=== PATIENT | female | born 1975 | race Caucasian/White ===

== ENCOUNTER 2020-01-07 17:07 | Inpatient (IN) ==
[2020-01-07] MEDS ORDERED: 0.9 % Sodium Chloride 1,000 ML IVC ONE (17:35)
[2020-01-07] MEDS ORDERED: Ipratropium/Albuterol Neb 3 ML IH ONE (17:35)
[2020-01-07] MEDS ORDERED: Insulin Human Regular 10 UNIT in 0.9 % Sodium Chloride 10 ML IV ONE (17:37)
[2020-01-07] MEDS ORDERED: MethylPREDNISolone 40 MG/ML VIAL IVP ONE (17:47)
[2020-01-07 17:50] LABS: Basophils % 0.2 %; Eosinophils % 0.2 %; Hematocrit 40.6 % (35.3-44.9); Hemoglobin 12.8 g/dL (11.5-15.4); Immature Granulocytes % 0.9 % (0-4); Lymphocytes % 10.1 %; Mean Corpuscular HGB Conc 31.5 g/dL (31.6-35.5); Mean Corpuscular Hemoglobin 24.7 pg (28.0-33.3); Mean Corpuscular Volume 78.4 fL (83.0-100.0); Mean Platelet Volume 10.2 fL (9.4-12.4); Monocytes # 0.1 K/mcL (0.0-1.3); Monocytes % 0.8 %; Neutrophils # 8.3 K/mcL (1.6-8.9); Platelet Count 299 K/mcL (140-400); Red Blood Count 5.18 M/mcL (3.82-4.97); Red Cell Distribution Width 15.7 % (11.5-14.5); Segmented Neutrophils % 87.8 %; White Blood Count 9.5 K/mcL (4.3-11.1)
[2020-01-07 18:18] LABS: Troponin I < 0.03 ng/mL (< 0.04)
[2020-01-07 18:19] LABS: Alanine Aminotransferase 11 Units/L (7-52); Albumin 4.1 g/dL (3.5-5.7); Albumin/Globulin Ratio 1.1 (1.1-2.2); Alkaline Phosphatase 105 Units/L (34-104); Aspartate Amino Transferase 16 Units/L (13-39); BUN/Creatinine Ratio 22 (6-26); Bilirubin,Direct 0.1 mg/dL (0.0-0.2); Bilirubin,Indirect 0.2 mg/dL (0.0-1.0); Bilirubin,Total 0.3 mg/dL (0.3-1.0); Blood Urea Nitrogen 19 mg/dL (6-20); Calcium 9.6 mg/dL (8.6-10.3); Carbon Dioxide 22 mEq/L (23-29); Chloride 92 mEq/L (98-107); Globulin 3.9 g/dL (2.4-3.5); Glucose 481 mg/dL (70-105); Osmolality,Calculated 292 (280-300); Potassium 3.9 mEq/L (3.5-5.1); Sodium 129 mEq/L (136-145); eGFR For African Americans > 60 (> 60); eGFR For Non-African Americans > 60 (> 60)
[2020-01-07 18:29] LABS: VBG HCO3 24 mEq/L (21-27); VBG PCO2 43 mmHg (41-51); VBG PH 7.35 pH Units (7.32-7.42); VBG PO2 71 mmHg (25-50)
[2020-01-07] MEDS ORDERED: Ipratropium/Albuterol Neb 3 ML IH PRN ×2 (19:40→20:40)
[2020-01-07] MEDS ORDERED: MethylPREDNISolone 40 MG/ML VIAL IVP SCH (19:45)
[2020-01-07] MEDS ORDERED: *HR* Dextrose 50 % in Water (Syg) 50 ML SYRINGE IVP PRN ×2 (19:53→20:40)
[2020-01-07] MEDS ORDERED: Dextrose Gel 15 GM/37.5 ML TUBE PO PRN ×5 (19:53→20:40)
[2020-01-07] MEDS ORDERED: D5% in Water 1,000 ML IVC PRN ×2 (19:53→20:40)
[2020-01-07] MEDS ORDERED: cefTRIAXone 1,000 MG in Water for inj. (sterile) 10 ML IVP SCH (20:00)
[2020-01-07] MEDS ORDERED: Insulin LISPRO 300 UNITS/3 ML VIAL SQ SCH (20:00)
[2020-01-07] MEDS ORDERED: Ondansetron 4 MG/2 ML VIAL IVP PRN (20:40)
[2020-01-07] MEDS ORDERED: *HR* HYDROcodone/Acet 5/325 mg TABLET PO PRN (20:40)
[2020-01-07] MEDS ORDERED: Naloxone 0.4 MG/ML INJ IVP PRN (20:40)
[2020-01-07] MEDS ORDERED: Insulin DETEMIR 100 UNIT/ML per UNIT SQ ONE ×2 (21:00)
[2020-01-07] MEDS ORDERED: ARIPiprazole 2 MG TABLET PO SCH (21:00)
[2020-01-07] MEDS: Budesonide/Formoterol 160/4.5 1 PUFF INH IH SCH (21:37)
[2020-01-07] MEDS ORDERED: Ipratropium/Albuterol Neb 3 ML IH SCH (22:00)
[2020-01-07] MEDS: Gabapentin 300 MG CAPSULE PO SCH (23:28)
[2020-01-07] MEDS: FLUoxetine 20 MG CAPSULE PO SCH (23:28)
[2020-01-07] MEDS: lamoTRIgine 100 MG TABLET PO SCH (23:32)
[2020-01-07] MEDS: ALPRAZolam 1 MG TABLET PO SCH (23:33)
[2020-01-07] MEDS: lamoTRIgine 25 MG TABLET PO SCH (23:33)
[2020-01-08] MEDS: Ipratropium/Albuterol Neb 3 ML IH SCH ×5 (02:20→21:34)
[2020-01-08] MEDS: MethylPREDNISolone 40 MG/ML VIAL IVP SCH ×4 (02:23→23:39)
[2020-01-08 05:25] LABS: Basophils % 0.1 %; Hematocrit 36.8 % (35.3-44.9); Hemoglobin 11.2 g/dL (11.5-15.4); Lymphocytes # 0.8 K/mcL (0.6-4.6); Mean Corpuscular HGB Conc 30.4 g/dL (31.6-35.5); Mean Corpuscular Hemoglobin 24.2 pg (28.0-33.3); Mean Corpuscular Volume 79.7 fL (83.0-100.0); Monocytes # 0.1 K/mcL (0.0-1.3); Monocytes % 1.5 %; Platelet Count 243 K/mcL (140-400); Red Blood Count 4.62 M/mcL (3.82-4.97); Red Cell Distribution Width 15.9 % (11.5-14.5); Segmented Neutrophils % 88.4 %
[2020-01-08 05:26] LABS: White Blood Count 9.1 K/mcL (4.3-11.1)
[2020-01-08 05:40] LABS: Alanine Aminotransferase 10 Units/L (7-52); Albumin 3.9 g/dL (3.5-5.7); Albumin/Globulin Ratio 1.2 (1.1-2.2); Alkaline Phosphatase 87 Units/L (34-104); Aspartate Amino Transferase 12 Units/L (13-39); BUN/Creatinine Ratio 20 (6-26); Bilirubin,Total 0.3 mg/dL (0.3-1.0); Blood Urea Nitrogen 16 mg/dL (6-20); Calcium 9.2 mg/dL (8.6-10.3); Carbon Dioxide 22 mEq/L (23-29); Chloride 95 mEq/L (98-107); Globulin 3.3 g/dL (2.4-3.5); Glucose 448 mg/dL (70-105); Osmolality,Calculated 295 (280-300); Potassium 4.2 mEq/L (3.5-5.1); Sodium 132 mEq/L (136-145); Total Protein 7.2 g/dL (6.4-8.9); eGFR For African Americans > 60 (> 60); eGFR For Non-African Americans > 60 (> 60)
[2020-01-08] MEDS: *HR* Enoxaparin 40 MG/0.4 ML SYRINGE SQ SCH (06:39)
[2020-01-08] MEDS ORDERED: Insulin DETEMIR 100 UNIT/ML X5UNITS SQ SCH ×3 (07:30→21:00)
[2020-01-08] MEDS: Insulin LISPRO 300 UNITS/3 ML VIAL SQ SCH ×3 (07:59→16:24)
[2020-01-08] MEDS ORDERED: GlipiZIDE 5 MG TABLET PO SCH (08:00)
[2020-01-08] MEDS: Insulin DETEMIR 100 UNIT/ML X5UNITS SQ SCH (08:04)
[2020-01-08] MEDS: FLUoxetine 20 MG CAPSULE PO SCH ×2 (08:24→20:13)
[2020-01-08] MEDS: GlipiZIDE 5 MG TABLET PO SCH ×2 (08:25→16:27)
[2020-01-08] MEDS: Gabapentin 300 MG CAPSULE PO SCH ×3 (08:26→20:13)
[2020-01-08] MEDS: Aspirin Enteric Coated 81 MG Tablet PO SCH (08:26)
[2020-01-08] MEDS: ARIPiprazole 10 MG TABLET PO SCH ×2 (08:27→20:14)
[2020-01-08] MEDS: ALPRAZolam 1 MG TABLET PO SCH ×2 (08:28→20:14)
[2020-01-08] MEDS: lamoTRIgine 100 MG TABLET PO SCH ×2 (08:38→20:13)
[2020-01-08 08:39] LABS: Estimated Average Glucose 324 mg/dl
[2020-01-08] MEDS: lamoTRIgine 25 MG TABLET PO SCH ×2 (08:39→20:13)
[2020-01-08] MEDS: cefTRIAXone 1,000 MG in Water for inj. (sterile) 10 ML IVP SCH (08:47)
[2020-01-08] MEDS: Budesonide/Formoterol 160/4.5 1 PUFF INH IH SCH ×2 (09:42→21:33)
[2020-01-08] MEDS: Tiotropium 18 MCG inhalation IH SCH ×2 (09:45→21:33)
[2020-01-08] MEDS: VICTOZA 1.2 MG SCH (20:23)
[2020-01-09] MEDS: Ipratropium/Albuterol Neb 3 ML IH SCH ×4 (04:53→21:26)
[2020-01-09] MEDS: MethylPREDNISolone 40 MG/ML VIAL IVP SCH ×3 (08:02→23:47)
[2020-01-09] MEDS: cefTRIAXone 1,000 MG in Water for inj. (sterile) 10 ML IVP SCH (08:02)
[2020-01-09] MEDS: FLUoxetine 20 MG CAPSULE PO SCH ×2 (08:03→20:33)
[2020-01-09] MEDS: *HR* Enoxaparin 40 MG/0.4 ML SYRINGE SQ SCH (08:03)
[2020-01-09] MEDS: lamoTRIgine 25 MG TABLET PO SCH ×2 (08:03→20:33)
[2020-01-09] MEDS: lamoTRIgine 100 MG TABLET PO SCH ×2 (08:03→20:34)
[2020-01-09] MEDS: Aspirin Enteric Coated 81 MG Tablet PO SCH (08:05)
[2020-01-09] MEDS: ALPRAZolam 1 MG TABLET PO SCH ×2 (08:05→20:33)
[2020-01-09] MEDS: Gabapentin 300 MG CAPSULE PO SCH ×3 (08:05→20:33)
[2020-01-09] MEDS: ARIPiprazole 10 MG TABLET PO SCH ×2 (08:05→20:34)
[2020-01-09] MEDS: GlipiZIDE 5 MG TABLET PO SCH ×2 (08:05→18:18)
[2020-01-09] MEDS: Insulin DETEMIR 100 UNIT/ML X5UNITS SQ SCH (08:07)
[2020-01-09] MEDS: Insulin LISPRO 300 UNITS/3 ML VIAL SQ SCH ×3 (08:09→18:18)
[2020-01-09] MEDS: Tiotropium 18 MCG inhalation IH SCH (08:11)
[2020-01-09] MEDS: Budesonide/Formoterol 160/4.5 1 PUFF INH IH SCH ×2 (09:30→21:26)
[2020-01-09] MEDS: VICTOZA 1.2 MG SCH (20:36)
[2020-01-09] MEDS ORDERED: Insulin DETEMIR 100 UNIT/ML X5UNITS SQ SCH ×2 (21:00)
[2020-01-10] MEDS: Ipratropium/Albuterol Neb 3 ML IH SCH ×2 (03:53→10:37)
[2020-01-10] MEDS: *HR* Enoxaparin 40 MG/0.4 ML SYRINGE SQ SCH (08:18)
[2020-01-10] MEDS: GlipiZIDE 5 MG TABLET PO SCH (08:19)
[2020-01-10] MEDS: FLUoxetine 20 MG CAPSULE PO SCH (08:19)
[2020-01-10] MEDS: ARIPiprazole 10 MG TABLET PO SCH (08:19)
[2020-01-10] MEDS: Gabapentin 300 MG CAPSULE PO SCH (08:19)
[2020-01-10] MEDS: lamoTRIgine 100 MG TABLET PO SCH (08:19)
[2020-01-10] MEDS: Aspirin Enteric Coated 81 MG Tablet PO SCH (08:19)
[2020-01-10] MEDS: cefTRIAXone 1,000 MG in Water for inj. (sterile) 10 ML IVP SCH (08:20)
[2020-01-10] MEDS: lamoTRIgine 25 MG TABLET PO SCH (08:20)
[2020-01-10] MEDS: Insulin LISPRO 300 UNITS/3 ML VIAL SQ SCH ×2 (08:20→12:30)
[2020-01-10] MEDS: ALPRAZolam 1 MG TABLET PO SCH (08:20)
[2020-01-10] MEDS: Insulin DETEMIR 100 UNIT/ML X5UNITS SQ SCH (08:52)
[2020-01-10] MEDS: Budesonide/Formoterol 160/4.5 1 PUFF INH IH SCH (10:30)
[2020-01-10] MEDS: Tiotropium 18 MCG inhalation IH SCH (10:37)
[2020-01-10 11:56] VITALS: BP 138/88
[2020-01-10] MEDS ORDERED: MethylPREDNISolone 40 MG/ML VIAL IVP SCH (12:00)
== END 2020-01-10 13:36 | disposition home or self-care (01) | DRG 191 ==
LOC: EMEROOGRE 17:07 → INPGRE 17:07
PROVIDERS: ADMIT Family Medicine; ATTEND Family Medicine